=== PATIENT | male | born 1990 | race Caucasian/White ===

== ENCOUNTER 2016-09-03 12:00 | Emergency (ER) | payer OTHER ==
[~2016-09-03] VITALS: Ht 177.8 cm; Wt 69.7 kg
[~2016-09-03 12:00] MED LIST: MIRALAX17 GM PO; TESSALON PERLE100 MG PO; ZITHROMAX250 MG PO
[2016-09-03 12:56] LABS: INFLUENZA A VIRAL ANTIGEN NEGATIVE; INFLUENZA B VIRAL ANTIGEN NEGATIVE
[2016-09-03 14:57] LABS: ADD MIUA? NO; BILIRUBIN NEGATIVE; BLOOD NEGATIVE; COLOR DK YELLOW ((YELLOW)); GLUCOSE (STRIP) NEGATIVE; KETONES NEGATIVE; LEUKOCYTES NEGATIVE; NITRITE NEGATIVE; PH, URINE 5.5 (5-8); PROTEIN (STRIP) TRACE; SPECIFIC GRAVITY 1.035 (1.000-1.030); UROBILINOGEN 0.2 MG/DL (0.2-1.0)
[2016-09-03] MEDS ORDERED: ZOFRAN ODT4 MG PO (15:08)
[2016-09-03] MEDS ORDERED: BENTYL20 MG PO (15:08)
[2016-09-03 15:49] VITALS: BP 132/81
== END 2016-09-03 15:51 | disposition home or self-care (01) ==
LOC: EME 12:00 → RME 12:00
PROVIDERS: Emergency Medicine; Physician Assistant
DX: R11.2 Nausea with vomiting, unspecified (principal); R19.7 Diarrhea, unspecified; E86.0 Dehydration
CPT/HCPCS: 81003; 87502; 99281; 99285; J0500

== ENCOUNTER 2016-10-18 01:22 | Emergency (ER) | payer OTHER ==
[~2016-10-18] VITALS: Ht 177.8 cm; Wt 71.6 kg
[~2016-10-18 01:22] MED LIST changes: +BENTYL20 MG PO; +ZOFRAN ODT4 MG PO
[2016-10-18 01:58] VITALS: BP 150/91
== END 2016-10-18 01:59 | disposition home or self-care (01) ==
LOC: EXP 01:22 → EME 01:22 → EXP 01:59
DX: S61.012A Laceration without foreign body of left thumb without damage to nail, initial encounter (principal); W22.8XXA Striking against or struck by other objects, initial encounter
CPT/HCPCS: 99281; 99284